=== PATIENT | female | born 1965 | race Caucasian/White ===

== ENCOUNTER 2022-10-26 09:44 | Inpatient (IN) ==
[2022-10-26] MEDS ORDERED: SODIUM CHLORIDE 0.9% 1000ML 1,000 ML IV ONE ×2 (10:01→14:20)
--- NOTE | 2022-10-26 10:22 | XRay Report ---
XR chest 1V portable CLINICAL HISTORY: dizziness TECHNIQUE: Single frontal radiograph of the chest was obtained. Comparison: None available at the time of this dictation. FINDINGS: No lines and tubes are seen. The cardiomediastinal silhouette is normal. The lungs are clear. No evid ence of pleural effusion or pneumothorax. IMPRESSION: No acute chest disease. ACT 112: Negative or not required by law. Electronically signed by: Mukund Harden M.D. 10/26/2022 10:21 AM
[2022-10-26] MEDS ORDERED: diphenhydrAMINE 50 MG/ML VIAL IV STA (10:41)
[2022-10-26] MEDS ORDERED: METOCLOPRAMIDE HCL INJ 5 MG/ML 2 ML VIAL IV ONE ×2 (10:41→22:00)
[2022-10-26] MEDS ORDERED: dexAMETHasone**PF** 10 MG/ML VIAL IV ONE (10:41)
[2022-10-26 10:53] LABS: Basophils # (auto) 0.03 K/uL (0-0.2); Basophils % (auto) 0.7 %; Eosinophils # (auto) 0.19 K/uL (0-0.50); Eosinophils % (auto) 4.5 %; Hematocrit (blood only) 38.4 % (37.0-47.0); Hemoglobin 13.1 g/dl (12.0-16.0); Immature Granulocytes # (auto) 0.01 K/uL (0.01-0.20); Immature Granulocytes % (auto) 0.2 %; Lymphocytes # (auto) 1.78 K/uL (1.2-3.4); Lymphocytes % (auto) 42.4 %; Mean Corpuscular Hemoglobin 28.1 pg (25.0-34.0); Mean Corpuscular Hgb Conc 34.1 g/dL (32.0-36.0); Mean Corpuscular Volume 82.4 fL (80.0-100.0); Monocytes # (auto) 0.56 K/uL (0.11-0.59); Monocytes % (auto) 13.3 %; Neutrophils # (auto) 1.63 K/uL (1.40-6.50); Neutrophils % (auto) 38.9 %; Platelet Count 291 K/uL (130-400); RDW Coefficient of Variation 13.6 % (11.5-14.5); RDW Standard Deviation 40.4 fL (36.4-46.3); Red Blood Count 4.66 M/uL (4.20-5.40)
--- NOTE | 2022-10-26 10:59 | Emergency Department Note ---
Impression & Plan Vertigo, Dizziness, NSVT (nonsustained ventricular tachycardia), HTN (hypertension) ED Provider Note NAME: ANNIE HINTON AGE: 57 SEX: F ARRIVES VIA: Ambulance INFORMANT: Patient ED PROVIDER(S): Keo Kessler MD CHIEF COMPLAINT: Vertigo PLAN: Disposition: Admit MEDICAL DECISION MAKING: The patient is a pleasant 57-year-old woman with a past medical history of chronic venous insufficiency, GERD, hypertension who presents to the emergency department via EMS for evaluation of dizziness and room spinning with associated nausea in the setting of reported feeling generalized malaise and fatigue over the past week. Patient denies any fevers, cough, congestion, vomiting or diarrhea. She has any urinary symptoms. 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 On arrival the patient is no acute distress, afebrile with blood pressure 170/110s, heart rate in the 90-100s and vital signs otherwise stable. She appears clinically dry. She has no focal neurologic deficits. EKG without overt acute ischemia. Chest x-ray negative for acute cardiopulmonary process. CT of the head and CTA head and neck negative for ICH or acute ischemia. 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 WBC 4.2k nonspecific. H/H and platelets within normal limits. Chemistry without metabolic acidosis. Electrolytes and LFTs without significant abnormality. High-sensitivity troponin 3.7, within normal limits. Lipase is normal. TSH 1.7, within normal limits. COVID-19 RNA, STACI test was negative. Of note, during the patient's most part observation she was noted to have an episode of tachycardia to the 150s which was self-limited lasting approximately 5-6 seconds which was wide complex. The patient denied having any symptoms during this period and does correlate to a moment when she reports she was movi ng around in the bed to make yourself more comfortable however given there is no baseline artifact telemetry finding is suspicious for NSVT versus paroxysmal atrial flutter. Patient did report feeling some improvement following IV fluid hydration, diphenhydramine, Reglan and dexamethasone for possible component of vestibular neuritis/labyrinthitis. Given her CT findings and telemetry she did agree with recommendation for admission for further evaluation. Case was discussed with Dr. Tate, [facility] hospitalist, who will evaluate the patient for admission. Triage Nursing notes reviewed and agree them. Prior/outside medical records reviewed Vital Signs: reviewed Differential diagnosis: Benign positional vertigo, dehydration, hypovolemia, anemia, tumor, infection, hypoglycemia, electrolyte abnormalities, cardiac sources, intracerebral event, toxicologic, neurologic, as well as other pathologies. ER treatment provided: See below. Diagnostics interpreted by me: ECG 955: Normal sinus rhythm, 84 bpm, no overt ST elevation or depression, QTc 451, QRS 74. Cardiac Monitoring: An order for continuous cardiac monitoring was placed and demonstrated Normal sinus rhythm, 84 bpm, NSVT vs paroxysmal atrial flutter Laboratory studies: See below Imaging studies: See below Consultation(s): Case was discussed with Dr. Tate, [facility] hospitalist, who will evaluate the patient for admission. HPI: The patient is a pleasant 57-year-old woman with a past medical history of chronic venous insufficiency, GERD, hypertension who presents to the emergency department via EMS for evaluation of dizziness and room spinning with associated nausea in the setting of reported feeling generalized malaise and fatigue over the past week. Patient denies any fevers, cough, congestion, vomiting or diarrhea. She has any urinary symptoms. 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 ROS: See above HPI for pertinent positives & negatives. A total of 10 systems reviewed and were otherwise negative. VITALS:See Below PHYSICAL EXAMINATION: GENERAL: Awake, alert, fatigued but well-appearing, in no distress HENT: Normocephalic, atraumatic. Oropharynx with dry mucous membranes and otherwise unremarkable. . EYES: Normal conjunctiva. Sclera non-icteric EOMI. No nystamgus. PEARRL. NECK: Supple. No nuchal rigidity. FROM. No JVD. RESPIRATORY: Clear to auscultation. CARDIAC: Tachycardic rate, normal rhythm. Extremities warm and well perfused. Pulses equal. ABDOMEN: Soft, non-distended. No tenderness to palpation. No rebound or guarding. No masses. RECTAL: Deferred. MUSCULOSKELETAL: Chest examination reveals no tenderness. The back is symmetrical on inspection without obvious abnormality. There is no CVA tenderness to palpation. No joint edema. LOWER EXTREMITIES: Calves are equal size bilaterally and non-tender. No edema. No discoloration. NEURO: Normal sensorium. No sensory or motor deficits noted. 5/5 strength and SILT x 4 extremities. Cerebellar function intact including [id number], alternating palms, [id number]. SKIN: No rash or jaundice noted. Keo Kessler MD Past Med/Surg History Medical History Facial paralysis/Crum Lynne palsy HTN (hypertension) Social History Smoking Status: Former smoker Smoking End Date: 2001; Hx Alcohol Use: Yes Hx Substance Use: No Preferred Language: Slovenian Communication Ability: Effective Family Nurse Practitioner Required: No Beliefs That Will Affect Care: None Current Living Situation: Family Current Living Situation Comment: daughter Feels Safe at Home: Yes Safety Concerns: Feels Safe At This Time Assistive Devices: Glasses Allergies Allergies Allergy/AdvReac Type Severity Reaction Status Date / Time cetirizine Allergy Unknown Verified 10/26/22 15:23 diflunisal [From Dolobid] Allergy Unknown Verified 10/26/22 15:23 hydrochlorothiazide Allergy Unknown Verified 10/26/22 15:23 Penicillins Allergy Unknown Verified 10/26/22 15:23 Home Meds Home Medications Medication Instructions Recorded Confirmed albuterol sulfate 90 mcg/actuation 2 puff inhalation Q4H PRN Wheezing 07/29/22 10/26/22 aerosol inhaler cholecalciferol (vitamin D3) 250 250 mcg PO DAILY 07/29/22 10/26/22 mcg (10,000 unit) capsule omeprazole 20 mg tablet,delayed 20 mg PO DAILY 07/29/22 10/26/22 release pseudoephedrine HCl 30 mg tablet 30 mg PO BID PRN nasal congestion 07/29/22 10/26/22 (Sudafed) carboxymethylcellulose sodium 0.5 1 drp ophthalmic (eye) .COMPLEX 08/02/22 10/26/22 % eye drops in a dropperette PRN Dry Eye(S) hydrochlorothiazide 25 mg tablet 50 mg PO DAILY 08/02/22 10/26/22 polyvinyl alcohol-povidone 1.4 1 drp ophthalmic (eye) QID PRN 08/02/22 10/26/22 %-0.6 % eye drops Other losartan 25 mg tablet 25 mg PO DAILY 09/02/22 10/26/22 vitamin B complex 1 tab PO DAILY 10/26/22 10/26/22 Results & Data (ED) Vital Signs Vital Signs - 24 hr 10/26/22 09:49 10/26/22 09:49 10/26/22 09:52 Temperature 36.5 C 36.5 C Temperature Source Oral Oral Pulse Rate 85 84 Pulse Rate [Apical] 84 Respiratory Rate 18 18 Respiratory Effort / Characteristics Non-Labored Non-Labored Respiratory Depth Normal Normal Respiratory Pattern Regular Regular Blood Pressure 153/85 H Blood Pressure [Right Arm] 153/85 H Blood Pressure Mean 107 Blood Pressure Mean [Right Arm] 107 Pulse Oximetry 100 99 Oxygen Delivery Method Room Air Room Air Sepsis New/Unexplained Change in Mental Status No Sepsis Action Taken by Nursing No Action Required 10/26/22 10:04 10/26/22 10:55 10/26/22 11:31 Temperature Temperature Source Pulse Rate 150 H Pulse Rate [Apical] 98 H Respiratory Rate 18 Respiratory Effort / Characteristics Non-Labored Respiratory Depth Normal Respiratory Pattern Regular Blood Pressure Blood Pressure [Right Arm] 170/113 H Blood Pressure Mean Blood Pressure Mean [Right Arm] 132 Pulse Oximetry 99 96 Oxygen Delivery Method Room Air Room Air Sepsis New/Unexplained Change in Mental Status Sepsis Action Taken by Nursing 10/26/22 13:05 10/26/22 14:35 Temperature Temperature Source Pulse Rate Pulse Rate [Apical] 108 H 113 H Respiratory Rate 18 18 Respiratory Effort / Characteristics Non-Labored Non-Labored Respiratory Depth Normal Normal Respiratory Pattern Regular Regular Blood Pressure Blood Pressure [Right Arm] 153/83 H 171/109 H Blood Pressure Mean Blood Pressure Mean [Right Arm] 106 129 Pulse Oximetry 96 96 Oxygen Delivery Method Room Air Room Air Sepsis New/Unexplained Change in Mental Status Sepsis Action Taken by Nursing Laboratory Data Attestation: I reviewed the patient's lab results. 10/26/22 09:56 10/26/22 09:56 Lab Results 10/26/22 10/26/22 10/26/22 Range/Units 09:56 09:56 09:56 WBC 4.20 L (4.8-10.8) K/ul RBC 4.66 (4.20-5.40) M/uL Hgb 13.1 (12.0-16.0) g/dl Hct 38.4 (37.0-47.0) % MCV 82.4 (80.0-100.0) fL MCH 28.1 (25.0-34.0) pg MCHC 34.1 (32.0-36.0) g/dL RDW Std Deviation 40.4 (36.4-46.3) fL RDW Coeff of Adolfo 13.6 (11.5-14.5) % Plt Count 291 (130-400) K/uL MPV 10.0 (9.4-12.4) fL Immature Gran % (Auto) 0.2 % Neut % (Auto) 38.9 % Lymph % (Auto) 42.4 % [place] % (Auto) 13.3 % Eos % (Auto) 4.5 % Baso % (Auto) 0.7 % Neut # (Auto) 1.63 (1.40-6.50) K/uL Lymph # (Auto) 1.78 (1.2-3.4) K/uL [place] # (Auto) 0.56 (0.11-0.59) K/uL Eos # (Auto) 0.19 (0-0.50) K/uL Baso # (Auto) 0.03 (0-0.2) K/uL Immature Gran # (Auto) 0.01 (0.01-0.20) K/uL Sodium 138 (136-145) mmol/L Potassium 3.8 (3.5-5.1) mmol/L Chloride 103 (98-107) mmol/L Carbon Dioxide 26 (21-32) mmol/L Anion Gap 9 (3-11) BUN 11 (6-23) mg/dl Creatinine 0.78 (0.6-1.2) mg/dl Est Cr Clr Drug Dosing Not Reportable Est GFR ( Amer) 98.5 ml/min Est GFR (Non-Af Amer) 85.0 ml/min BUN/Creatinine Ratio 14.1 (10-20) Glucose 115 H (70-99(Fasting)) mg/dl Calcium 10.1 (8.6-10.3) mg/dl Phosphorus 3.6 (2.5-4.9) mg/dl Magnesium 1.8 (1.7-2.4) mg/dl Total Bilirubin 0.6 (0.2-1.0) mg/dl AST 21 (13-39) U/L ALT 14 (7-52) U/L Alkaline Phosphatase 122 H (34-104) U/L Troponin I High Sens 3.7 (0-14) pg/ml Total Protein 7.1 (6.0-8.3) gm/dl Albumin 4.4 (3.4-5.0) gm/dl Globulin 2.7 (2.5-4.0) gm/dl Albumin/Globulin Ratio 1.6 (0.9-2) Lipase 19 (11-82) U/L TSH 1.731 (0.300-4.500) uIu/ml SARS-CoV-2, RNA, NAAT (NEGATIVE) 10/26/22 Range/Units 15:13 WBC (4.8-10.8) K/ul RBC (4.20-5.40) M/uL Hgb (12.0-16.0) g/dl Hct (37.0-47.0) % MCV (80.0-100.0) fL MCH (25.0-34.0) pg MCHC (32.0-36.0) g/dL RDW Std Deviation (36.4-46.3) fL RDW Coeff of Adolfo (11.5-14.5) % Plt Count (130-400) K/uL MPV (9.4-12.4) fL Immature Gran % (Auto) % Neut % (Auto) % Lymph % (Auto) % [place] % (Auto) % Eos % (Auto) % Baso % (Auto) % Neut # (Auto) (1.40-6.50) K/uL Lymph # (Auto) (1.2-3.4) K/uL [place] # (Auto) (0.11-0.59) K/uL Eos # (Auto) (0-0.50) K/uL Baso # (Auto) (0-0.2) K/uL Immature Gran # (Auto) (0.01-0.20) K/uL Sodium (136-145) mmol/L Potassium (3.5-5.1) mmol/L Chloride (98-107) mmol/L Carbon Dioxide (21-32) mmol/L Anion Gap (3-11) BUN (6-23) mg/dl Creatinine (0.6-1.2) mg/dl Est Cr Clr Drug Dosing Est GFR ( Amer) ml/min Est GFR (Non-Af Amer) ml/min BUN/Creatinine Ratio (10-20) Glucose (70-99(Fasting)) mg/dl Calcium (8.6-10.3) mg/dl Phosphorus (2.5-4.9) mg/dl Magnesium (1.7-2.4) mg/dl Total Bilirubin (0.2-1.0) mg/dl AST (13-39) U/L ALT (7-52) U/L Alkaline Phosphatase (34-104) U/L Troponin I High Sens (0-14) pg/ml Total Protein (6.0-8.3) gm/dl Albumin (3.4-5.0) gm/dl Globulin (2.5-4.0) gm/dl Albumin/Globulin Ratio (0.9-2) Lipase (11-82) U/L TSH (0.300-4.500) uIu/ml SARS-CoV-2, RNA, NAAT NEGATIVE (NEGATIVE) Administered Medications Aspirin (Aspirin 81 Mg Ectab) 81 mg PO DAILY FILOMENA Stop: 11/25/22 17:59 Last Admin: 10/26/22 18:04 Dose: 81 mg Documented By: TAYLOR Magnesium Oxide (Magnesium Oxide 400 Mg Tab) 400 mg PO QAM FILOMENA Stop: 11/25/22 17:59 Last Admin: 10/26/22 18:05 Dose: 400 mg Documented By: TAYLOR Discontinued Medications Dexamethasone Sodium Phosphate (DexamethasonePf 10 Mg/Ml Vial) 10 mg IV NOW ONE Stop: 10/26/22 10:42 Last Admin: 10/26/22 10:50 Dose: 10 mg Documented By: TARYN Diphenhydramine HCl (Diphenhydramine 50 Mg/Ml Vial) 25 mg IV NOW STA Stop: 10/26/22 10:42 Last Admin: 10/26/22 10:50 Dose: 25 mg Documented By: TARYN Sodium Chloride (Nss 1000ml) 1,000 mls @ 999 mls/hr IV .Q1H1M ONE Stop: 10/26/22 11:01 Last Infusion: 10/26/22 11:37 Dose: 0 mls/hr Documented By: Admin: 10/26/22 10:10 Dose: 999 mls/hr Documented By: TARYN Sodium Chloride (Nss 1000ml) 1,000 mls @ 999 mls/hr IV .Q1H1M ONE Stop: 10/26/22 15:20 Last Infusion: 10/26/22 16:30 Dose: 0 mls/hr Documented By: Admin: 10/26/22 14:36 Dose: 999 mls/hr Documented By: TARYN Ioversol (Optiray 320 500ml) 107 ml IV ONCE ONE Stop: 10/26/22 12:38 Last Admin: 10/26/22 12:37 Dose: 107 ml Documented By: KOSTAS Lorazepam (Lorazepam 0.5 Mg Tab) 0.5 mg PO NOW STA Stop: 10/26/22 18:17 Last Admin: 10/26/22 18:23 Dose: 0.5 mg Documented By: TAYLOR Metoclopramide HCl (Metoclopramide Hcl Inj 5 Mg/Ml 2 Ml Vial) 5 mg IV ONE ONE Stop: 10/26/22 10:42 Last Admin: 10/26/22 10:50 Dose: 5 mg Documented By: TARYN Imaging Data Radiologist's Impression: Chest X-Ray 10/26/22 10:01 XR chest 1V portable CLINICAL HISTORY: dizziness TECHNIQUE: Single frontal radiograph of the chest was obtained. Comparison: None available at the time of this dictation. FINDINGS: No lines and tubes are seen. The cardiomediastinal silhouette is normal. The oliver ngs are clear. No evidence of pleural effusion or pneumothorax. IMPRESSION: No acute chest disease. ACT 112: Negative or not required by law. Electronically signed by: Mukund Harden M.D. 10/26/2022 10:[address] 10/26/22 10:41 CT angio head w con, CT angio neck with con, CT head/brain wo con CLINICAL HISTORY: vertigo TECHNIQUE: Contiguous axial CT images of the head were acquired from the base of the skull to the vertex without intravenous contrast administration. CT angiography of the head and neck was performed following intravenous adminis tration of iodinated contrast. Coronal and sagittal MIPS were obtained from the axial data set and were submitted for review. Automated dose lowering techniques and/or adjustment according to patient size were utilized for this examination. All measurements were calculated based on NASCET criteria. CT DOSE: 1172.22 mGy.cm Comparison: None available at the time of this dictation. FINDINGS: CT head: There is no acute intracranial hemorrhage or evidence of acute territorial infarction. No shift of the midline structures, mass effect, or extra-axial abnormalities are shown. Arachnoid cyst is seen in the left frontal lobe, unchanged from prior exam. Lungs and soft tissues are unremarkable. CTA Neck: A 3 vessel aortic arch is shown. There is no significant atherosclerotic plaque in the aortic arch or the origins of the innominate, left common carotid, and left subclavian arteries. 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 The right vertebral artery is dominant. CTA Head: The anterior and posterior cerebral circulations are patent. No hemodynamically significant stenosis, aneurysm, dissection, or arteriovenous malformation is shown. IMPRESSION: 1. No acute intracranial hemorrhage, evidence of acute territorial infarction, or other acute intracranial disease process. Redemonstration of left frontal arachnoid cyst. 2. 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 This may be a chronic finding. 3. No occlusion, hemodynamically significant stenosis, aneurysm, dissection, or arteriovenous malformation in the major intracranial arteries. Assessment of stenosis of the internal carotid arteries is based on NASCET criteria. ACT 112: Negative or not required by law. Electronically signed by: Mukund Harden M.D. 10/26/2022 12:57 PM Head CTA 10/26/22 10:41 CT angio head w con, CT angio neck with con, CT head/brain wo con CLINICAL HISTORY: vertigo TECHNIQUE: Contiguous axial CT images of the head were acquired from the base of the skull to the vertex without intravenous contrast administration. CT angiography of the head and neck was performed following intravenous administration of iodinated contrast. Coronal and sagittal MIPS were obtained from the axial data set and were submitted for review. Automated dose lowering techniques and/or adjustment according to patient size were utilized for this examination. All measurements were calculated based on NASCET criteria. CT DOSE: 1172.22 mGy.cm Comparison: None available at the time of this dictation. FINDINGS: CT head: There is no acute intracranial hemorrhage or evidence of acute territorial infarction. No shift of the midline structures, mass effect, or extra-axial abnormalities are shown. Arachnoid cyst is seen in the left frontal lobe, unchanged from prior exam. Lungs and soft tissues are unremarkable. CTA Neck: A 3 vessel aortic arch is shown. There is no significant atherosclerotic plaque in the aortic arch or the origins of the innominate, left common carotid, and left subclavian arteries. 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 The right vertebral artery is dominant. CTA Head: The anterior and posterior cerebral circulations are patent. No hemodynamically significant stenosis, aneurysm, dissection, or arteriovenous malformation is shown. IMPRESSION: 1. No acute intracranial hemorrhage, evidence of acute territorial infarction, or other acute intracranial disease process. Redemonstration of left frontal arachnoid cyst. 2. 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 This may be a chronic finding. 3. No occlusion, hemodynamically significant stenosis, aneurysm, dissection, or arteriovenous malformation in the major intracranial arteries. Assessment of stenosis of the internal carotid arteries is based on NASCET criteria. ACT 112: Negative or not required by law. Electronically signed by: Mukund Harden M.D. 10/26/2022 12:57 PM Neck CTA 10/26/22 10:41 CT angio head w con, CT angio neck with con, CT head/brain wo con CLINICAL HISTORY: vertigo TECHNIQUE: Contiguous axial CT images of the head were acquired from the base of the skull to the vertex without intravenous contrast administration. CT angiography of the head and neck was performed following intravenous administration of iodinated contrast. Coronal and sagittal MIPS were obtained from the axial data set and were submitted for review. Automated dose lowering techniques and/or adjustment according to patient size were utilized for this examination. All measurements were calculated based on NASCET criteria. CT DOSE: 1172.22 mGy.cm Comparison: None available at the time of this dictation. FINDINGS: CT head: There is no acute intracranial hemorrhage or evidence of acute territorial infarction. No shift of the midline structures, mass effect, or extra-axial abnormalities are shown. Arachnoid cyst is seen in the left frontal lobe, unchanged from prior exam. Lungs and soft tissues are unremarkable. CTA Neck: A 3 vessel aortic arch is shown. There is no significant atherosclerotic plaque in the aortic arch or the origins of the innominate, left common carotid, and left subclavian arteries. 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 The right vertebral artery is dominant. CTA Head: The anterior and posterior cerebral circulations are patent. No hemodynamically significant stenosis, aneurysm, dissection, or arteriovenous malformation is shown. IMPRESSION: 1. No acute intracranial hemorrhage, evidence of acute territorial infarction, or other acute intracranial disease process. Redemonstration of left frontal ar achnoid cyst. 2. There is near occlusion of the left vertebral artery with distal recon stitution. This may be a chronic finding. 3. No occlusion, hemodynamically significant stenosis, aneurysm, dissection, or arteriovenous malformation in the major intracranial arteries. Assessment of stenosis of the internal carotid arteries is based on NASCET jossie quintana. ACT 112: Negative or not required by law. Electronically signed by: Mukund Harden M.D. 10/26/2022 12:57 PM Discharge Plan Visit Data Chief Complaint: Illness ED Provider: Keo Kessler Discharge Problem: Vertigo, Dizziness, NSVT (nonsustained ventricular tachycardia), HTN (hyper tension) Patient Disposition: Admitted As Inpatient Discharge Instructions Interventions: ED Discharge Assessment Last Done: 10/26/22 16:57
[2022-10-26 11:07] LABS: Alanine Aminotransferase 14 U/L (7-52); Albumin Globulin Ratio 1.6 (0.9-2); Albumin Level 4.4 gm/dl (3.4-5.0); Alkaline Phosphatase 122 U/L (34-104); Anion Gap 9 (3-11); Aspartate Aminotransferase 21 U/L (13-39); BUN Creatinine Ratio 14.1 (10-20); Bilirubin,Total 0.6 mg/dl (0.2-1.0); Blood Urea Nitrogen 11 mg/dl (6-23); Calcium 10.1 mg/dl (8.6-10.3); Carbon Dioxide 26 mmol/L (21-32); Chloride 103 mmol/L (98-107); Est GFR (African American) 98.5 ml/min; Globulin 2.7 gm/dl (2.5-4.0); Glucose 115 mg/dl (70-99(Fasting)); Lipase 19 U/L (11-82); Magnesium 1.8 mg/dl (1.7-2.4); Phosphorus 3.6 mg/dl (2.5-4.9); Potassium 3.8 mmol/L (3.5-5.1); Sodium 138 mmol/L (136-145); Total Protein 7.1 gm/dl (6.0-8.3)
[2022-10-26 11:12] LABS: Troponin I High Sensitivity 3.7 pg/ml (0-14)
--- NOTE | 2022-10-26 12:10 | Electrocardiogram Report ---
Test Reason : Blood Pressure : / mmHG Vent. Rate : 084 BPM Atrial Rate : 084 BPM P-R Int : 162 ms QRS Dur : 074 ms QT Int : 382 ms P-R-T Axes : 061 035 043 degrees QTc Int : 451 ms Normal sinus rhythm No previous ECGs available Confirmed by Artemio Miramontes ([id number]) on 10/26/2022 12:10:28 PM Referred By: REFERRED SELF Confirmed By:Lisandro Miramontes
[2022-10-26] MEDS ORDERED: OPTIRAY 320 500ml IV ONE (12:37)
--- NOTE | 2022-10-26 12:58 | CT Scan Report ---
CT angio head w con, CT angio neck with con, CT head/brain wo con CLINICAL HISTORY: vertigo TECHNIQUE: Contiguous axial CT images of the head were acquired from the base of the skull to the mehrdad monique without intravenous contrast administration. CT angiography of the head and neck was performed f ollowing intravenous administration of iodinated contrast. Coronal and sagittal MIPS were obtained fr om the axial data set and were submitted for review. Automated dose lowering techniques and/or adjus tment according to patient size were utilized for this examination. All measurements were calculated based on NASCET criteria. CT DOSE: 1172.22 mGy.cm Comparison: None available at the time of this dictation. FINDINGS: CT head: There is no acute intracranial hemorrhage or evidence of acute territorial infarction. No sh ift of the midline structures, mass effect, or extra-axial abnormalities are shown. Arachnoid cyst is seen in the left frontal lobe, unchanged from prior exam. Lungs and soft tissues are unremarkable. CTA Neck: A 3 vessel aortic arch is shown. There is no significant atherosclerotic plaque in the aor tic arch or the origins of the innominate, left common carotid, and left subclavian arteries. 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 The right vertebral art renetta is dominant. CTA Head: The anterior and posterior cerebral circulations are patent. No hemodynamically significan t stenosis, aneurysm, dissection, or arteriovenous malformation is shown. IMPRESSION: 1. No acute intracranial hemorrhage, evidence of acute territorial infarction, or other acute intrac ranial disease process. Redemonstration of left frontal arachnoid cyst. 2. 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 This may be a ch ronic finding. 3. No occlusion, hemodynamically significant stenosis, aneurysm, dissection, or arteriovenous malfor mation in the major intracranial arteries. Assessment of stenosis of the internal carotid arteries is based on NASCET criteria. ACT 112: Negative or not required by law. Electronically signed by: Mukund Harden M.D. 10/26/2022 12:57 PM
--- NOTE | 2022-10-26 14:39 | History & Physical Report ---
Date of Service October 26, 2022 Assessment & Plan (1) Dizziness: Plan: Dizziness. Suspect labyrinthitis, DDx includes posterior circulation defect Symptoms: acutely this morning, has additional had malaise in the last week. Has had some right-sided ear pain as well. -Did have 1 episode of NSVT (see HPI) asymptomatic while in bed No leukocytosis Hemoglobin normal No electrolyte derangement Renal function normal at baseline, admitting creatinine 0.78 High-sensitivity troponin is normal EKG is normal sinus rhythm without territorial ST segment/T wave changes. 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 Right vertebral artery is dominant. Left vertebral occlusion possibly chronic no acute findings of the major intracranial arteries CXR: No active disease Given vertebral artery occlusion but with distal reconstitution will obtain MRI to look for any evidence of diffusion abnormality on DWI. Aspirin 81 mg started. She has not had any diplopia/drop attacks/perioral numbness/dysarthria/ataxia. This is her first episode. Symptoms are not present at time of bedside evaluation NSVT See HPI for rhythm strip Patient with no history of MA, ischemic disease, or arrhythmia. This run of NSVT did not correlate with symptoms at the time, patient was in bed We will follow overnight, keep on telemetry, and obtain echo Discussed with cardiology, defer metoprolol at this time, will follow echo. If no additional runs likely candidate for outpatient mobile telemetry monitoring. Cardiology consulted Hypertension Well-controlled on losartan, continued DVT prophylaxis: Lovenox Disposition: PCU for arrhythmia monitoring with 1 episode of? NSVT CODE STATUS: Full code Diet heart healthy (2) NSVT (nonsustained ventricular tachycardia): (3) HTN (hypertension): History of Present Illness Primary Care Provider: Brenda Juan Carlos Negron is a 57-year-old female with a past medical history of chronic venous insufficiency, GERD, hypertension, and Blanca's palsy 1 month prior to ER presentation who presents with dizziness, room spinning and nausea. She has had additional fatigue and malaise for the last week. Had Blanca's palsy 1 month ago with weakness of the forehead, eyelid, and lower face. Symptoms from this resolved completely. Did have a slight facial droop at that time Yesterday she reports she had one episode of dizziness which passed after a few seconds after she sat down. Today she felt fine in th emorning, got up and was doing OK. Was walking around her bed and felt the same type of dizzy spell. [place] like the room was rocking and she tilted onto her bed. [place] like the whole room was moving/spinning. [place] very nauseated during the episode. Did not throw up Has never had these symptoms before. - No vision change, no loss of conciousness, no perioral numbness, no ear tinning, no difficulty speaking. has not had problems walking since. Denies ataxia 'i was in control and could move normally, just room was spinning and felt dizzy.' No syncope/presyncope. No tinnitus No chest pain, chest pressure. No palpitations. Does get allergies, has not been congested recently hx RAÚL edema, was going to see Dr. Ruby for venoseal tomorrow No heart problems in the past. No fhx of heart disease in first degree relatives. Grandparents with some heart disease in old age but she isn't sure. Mother had thyroid problems Pt has hx of high blood pressure well controlled on losartan No fevers, chills [place] palsy went away completely, was on L side Has had an earache for 1-2 days little pressure in the ear. Uses ibuprofen for pain as needed/toothache. Does not regularly use aspirin. Medical History: Reviewed Medications: Reviewed Surgical History: Reviewed Family history: Reviewed Allergies: Reviewed Social History: No hx tobacco product use. Code Status: Full Code Allergies Allergy/AdvReac Type Severity Reaction Status Date / Time cetirizine Allergy Verified 09/02/22 11:22 diflunisal [From Dolobid] Allergy Verified 09/02/22 11:22 hydrochlorothiazide Allergy Verified 09/02/22 11:30 Penicillins Allergy Verified 09/02/22 11:22 Home Medications Medication Instructions Recorded Confirmed Type albuterol sulfate 90 mcg/actuation 2 puff inhalation Q4H PRN Wheezing 07/29/22 09/02/22 History aerosol inhaler cholecalciferol (vitamin D3) 250 250 mcg PO DAILY 07/29/22 09/02/22 History mcg (10,000 unit) capsule omeprazole 20 mg tablet,delayed 20 mg PO DAILY 07/29/22 09/02/22 History release pseudoephedrine HCl 30 mg tablet 30 mg PO BID PRN nasal congestion 07/29/22 09/02/22 History (Sudafed) carboxymethylcellulose sodium 0.5 1 drp ophthalmic (eye) .COMPLEX 08/02/22 09/02/22 History % eye drops in a dropperette PRN Dry Eye(S) hydrochlorothiazide 25 mg tablet 50 mg PO DAILY 08/02/22 09/02/22 History polyvinyl alcohol-povidone 1.4 1 drp ophthalmic (eye) QID PRN 08/02/22 09/02/22 History %-0.6 % eye drops Other erythromycin 5 mg/gram (0.5 %) eye 1 applic ophthalmic (eye) BID #3.5 09/02/22 Rx ointment grams losartan 25 mg tablet 25 mg PO DAILY 09/02/22 09/02/22 History Past Med/Surg History Medical History (Updated 10/26/22 @ 15:12 by Jakob Tate MD) HTN (hypertension) Social History Smoking Status: Never smoker Preferred Language: Filipino Feels Safe at Home: Yes Review of Systems Review of Systems: All systems reviewed & are unremarkable except as noted in HPI & below Physical Exam Physical Exam: General: A&Ox3. NAD. Cooperative. HEENT: Atraumatic, normocephalic. Vision/hearing intact. No facial asymmetry, see neuro below Pulm: CTAB A&P. -wheezes, -rales, -rhonchi. Symmetrical chest rise. No increased work of breathing. No respiratory distress. Cardiac: regular, tachycardic, -mrg. Radial pulses intact and symmetrical. Abdominal: Nontender, nondistended, soft. BS present. CRANIAL NERVES: II: Pupils equal and reactive, no relative afferent pupillary defect, no VF cuts III, IV, : EOM intact, no gaze preference or deviation, no nystagmus. V: normal sensation in V1, V2, and V3 segments bilaterally VII: no asymmetry, no nasolabial fold flattening VIII: normal hearing to speech IX, X: normal palatal elevation, no uvular deviation XI: 5/5 head turn and 5/5 shoulder shrug bilaterally XII: midline tongue protrusion MOTOR: RUE: 5/5 Shoulder internal rotation, external rotation, flexion, extension, abduction, adduction 5/5 Elbow flexion/extension, wrist flexion/extension 5/5 rn circulating strength, finger flexion/extension, interosseus LUE: 5/5 Shoulder internal rotation, external rotation, flexion, extension, abduction, adduction 5/5 Elbow flexion/extension, wrist flexion/extension 5/5 rn circulating strength, finger flexion/extension, interosseus RLE: 5/5 to hip flexion, knee flexion/extension, ankle dorsiflexion/plantarflexion LLE: 5/5 to hip flexion, knee flexion/extension, ankle dorsiflexion/plantarflexion REFLEXES: 2/4 patellar, bicepts, and achilles DTR without asymmetry. Bilateral flexor planter response, no William's, no clonus SENSORY: Normal to touch in upper and lower extremities without deficit or asymmetry COORD: Normal finger to nose and heel to meza Results & Data Results & Data Vital Signs (Past 12 Hours) Vital Signs Temp Pulse Pulse Resp BP BP Pulse Ox 10/26/22 14:35 113 H 18 171/109 H 96 10/26/22 13:05 108 H 18 153/83 H 96 10/26/22 11:31 150 H 10/26/22 10:55 98 H 18 170/113 H 96 10/26/22 10:04 99 10/26/22 09:52 84 10/26/22 09:49 36.5 C 84 18 153/85 H 99 10/26/22 09:49 36.5 C 85 18 153/85 H 100 O2 Del Method 10/26/22 14:35 Room Air 10/26/22 13:05 Room Air 10/26/22 11:31 10/26/22 10:55 Room Air 10/26/22 10:04 Room Air 10/26/22 09:52 10/26/22 09:49 Room Air 10/26/22 09:49 Room Air PG Care Time/CCT Total # of Minutes Spent Total Time Spent with Patient: Total time spent is greater than 50% in coordination of care (as documented) at patient's floor/unit and/or counseling patient: Coding Level of Care Code 88393 INT INP/OBS CARE 255MIN Diagnoses Dizziness R42 NSVT (nonsustained ventricular tachycardia) I47.29 HTN (hypertension) I10
[2022-10-26] MEDS: ASPIRIN 81 MG ECTAB PO SCH (18:04)
[2022-10-26] MEDS: MAGNESIUM OXIDE 400 MG TAB PO SCH (18:05)
[2022-10-26] MEDS ORDERED: LORazepam 0.5 MG TAB PO STA (18:16)
--- NOTE | 2022-10-26 19:08 | Magnetic Resonance Report ---
MR brain wo con CLINICAL HISTORY: eval posterior circ cva/diffusion defect TECHNIQUE: Multiplanar and multisequence MR images of the brain were obtained without intravenous con trast. Comparison: Comparison is made to CT head 10/26/2022 and MRI brain 09/02/2022 FINDINGS: No abnormal restricted diffusion is identified. A few punctate foci of DWI hyperintensity in the post erior fossa are without ADC correlate well with associated T2 hyperintensity.. Punctate white matter hyperintensity is noted in the left parietal lobe. The ventricular system is normal in appearance. Le ft arachnoid cyst is seen. There is no mass effect or midline shift. There is no evidence of acute in traparenchymal hemorrhage. No extra axial fluid collections are seen. The corpus callosum, pituitary gland, and cerebellar tonsils appear grossly unremarkable. Flow voids of the major intracranial arterial vessels are identified. The imaged portions of the para nasal sinuses, mastoid air cells, and orbits are unremarkable. IMPRESSION: There are a few punctate foci of DWI hyperintensity in the posterior fossa bilaterally. These may mehrdad y questionably reflect punctate infarcts. Left arachnoid cyst is seen. ACT 112: Negative or not required by law. Electronically signed by: Mukund Harden M.D. 10/26/2022 7:06 PM
[2022-10-27 06:33] LABS: Basophils # (auto) 0.01 K/uL (0-0.2); Basophils % (auto) 0.1 %; Hematocrit (blood only) 35.9 % (37.0-47.0); Hemoglobin 12.5 g/dl (12.0-16.0); Immature Granulocytes # (auto) 0.03 K/uL (0.01-0.20); Immature Granulocytes % (auto) 0.4 %; Lymphocytes # (auto) 1.58 K/uL (1.2-3.4); Lymphocytes % (auto) 21.1 %; Mean Corpuscular Hemoglobin 27.9 pg (25.0-34.0); Mean Corpuscular Hgb Conc 34.8 g/dL (32.0-36.0); Mean Corpuscular Volume 80.1 fL (80.0-100.0); Mean Platelet Volume 9.8 fL (9.4-12.4); Monocytes # (auto) 0.75 K/uL (0.11-0.59); Neutrophils # (auto) 5.13 K/uL (1.40-6.50); Neutrophils % (auto) 68.4 %; Platelet Count 333 K/uL (130-400); RDW Coefficient of Variation 13.5 % (11.5-14.5); RDW Standard Deviation 39.7 fL (36.4-46.3); Red Blood Count 4.48 M/uL (4.20-5.40)
[2022-10-27 06:53] LABS: BUN Creatinine Ratio 22.4 (10-20); Calcium 9.4 mg/dl (8.6-10.3); Creatinine Clr Calc Pharmacy 139.8 ml/min; Est GFR (African American) 119.4 ml/min; Magnesium 1.8 mg/dl (1.7-2.4); Potassium 3.7 mmol/L (3.5-5.1)
[2022-10-27] MEDS: ONDANSETRON INJ 2 MG/ML 2 ML VIAL IV PRN ×2 (08:04→12:00)
[2022-10-27] MEDS: PROMETHAZINE HCL 6.25 MG in SODIUM CHLORIDE 0.9% 50 ML IV PRN ×2 (09:03→21:23)
--- NOTE | 2022-10-27 09:12 | Neurology Consultation ---
Date of Consultation October 27, 2022 Assessment & Plan (1) Stroke with cerebral ischemia: Small punctate strokes noted in the bilateral cerebellar hemispheres in the setting of a L vert occlusion not present on the MR c-spine from 09/04. Suspect plaque rupture as the cause for the occlusion given the calciified deposit at the origin of the occlusion. Does not appear to be a dissection and patient has no risk factors for dissection. Vertigo is out of proportion to the tiny infarcts seen on MRI suggesting perhaps labrynthine artery involvement. Would continue aggressive symptomatic relief, add valium and meclizine in addition to the antiemetics. For stroke prevention, please add plavix 75mg daily to aspirin 81mg daily for 21 days, then aspirin alone. Start Lipitor 40mg daily. Continue therapy evals, would otherwise expect full recovery, prognosis is good. -- Valium PRN and meclizine scheduled for vertigo -- Continue antiemetics -- Aspirin 81mg daily and plavix 75mg daily for 21 days, then aspirin monotherapy -- Lipitor 40mg daily -- Repeat CTA neck in 3 months -- Continue therapy evals -- Does not need zio patch at discharge -- Neurology follow-up in 6-8 weeks -- Please contact us with any further questions Telehealth Consultation Telehealth Information Telehealth Information: I performed this visit using a real-time telehealth connection between my location and the patients location ([facility]). After connecting through interactive tele-video, patient was identified by name and date of and/or wristband check.Patient (or authorized healthcare field representative) was informed that this was a telemedicine visit and it was being conducted confidentially over secure lines. My office door was closed and no one else was present in the room with me.Patient (or authorized healthcare field representative) provided consent to proceed with the visit, expressed an understanding of privacy and security of the telemedicine visit, and gave permission to have a hospital field representative in the room in order to assist with the visit and to conduct portions of the visit, as needed. I informed the patient (or authorized healthcare field representative) that I reviewed their record and presented the opportunity for them to ask any questions regarding the visit today. The patient agreed to participate. History of Present Illness Reason for Consultation: Vertigo Requesting Physician: Dr. Haney Attending Physician: Linda Haney MD History of Present Illness Migdalia Teixeira is a 57 yo F presenting with acute onset vertigo that began Tuesday, resolved, then recurred again yesterday. She has never had vertigo like this in the past and has had intractable nausea and vomiting that is worse with movement since yesterday. 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 She reports that she was unable to close her left eye and had left facial weakness that entirely resolved within 2 weeks. Otherwise no history of stroke in the past, no injury to the neck, no chiropracty. Otherwise denies any weakness, numbness, vision or speech changes. Allergies Allergy/AdvReac Type Severity Reaction Status Date / Time cetirizine Allergy Unknown Verified 10/26/22 15: diflunisal [From Dolobid] Allergy Unknown Verified 10/26/22 15: hydrochlorothiazide Allergy Unknown Verified 10/26/22 15: Penicillins Allergy Unknown Verified 10/26/22 15:23 Home Medications Medication Instructions Recorded Confirmed Type albuterol sulfate 90 mcg/actuation 2 puff inhalation Q4H PRN Wheezing 07/29/22 10/26/22 History aerosol inhaler cholecalciferol (vitamin D3) 250 250 mcg PO DAILY 07/29/22 10/26/22 History mcg (10,000 unit) capsule omeprazole 20 mg tablet,delayed 20 mg PO DAILY 07/29/22 10/26/22 History release pseudoephedrine HCl 30 mg tablet 30 mg PO BID PRN nasal congestion 07/29/22 10/26/22 History (Sudafed) carboxymethylcellulose sodium 0.5 1 drp ophthalmic (eye) .COMPLEX 08/02/22 10/26/22 History % eye drops in a dropperette PRN Dry Eye(S) hydrochlorothiazide 25 mg tablet 50 mg PO DAILY 08/02/22 10/26/22 History polyvinyl alcohol-povidone 1.4 1 drp ophthalmic (eye) QID PRN 08/02/22 10/26/22 History %-0.6 % eye drops Other losartan 25 mg tablet 25 mg PO DAILY 09/02/22 10/26/22 History vitamin B complex 1 tab PO DAILY 10/26/22 10/26/22 History Patient History Medical History Facial paralysis/Crandon palsy HTN (hypertension) Social History Smoking Status: Former smoker Smoking End Date: 2001; Hx Alcohol Use: Yes Hx Substance Use: No Preferred Language: French Communication Ability: Effective Crtt Required: No Beliefs That Will Affect Care: None Current Living Situation: Family Current Living Situation Comment: daughter Feels Safe at Home: Yes Safety Concerns: Feels Safe At This Time Assistive Devices: Glasses Review of Systems +vertigo Physical Exam Neurological Examination: Mental Status: Awake and alert. Oriented to person, place, and time. Fluent. Comprehension intact. Affect appropriate. Cranial Nerves: II: pupils 3/3 to 2/2, blount grossly intact. III/IV/: Versions intact with R beating nystagmus on primary gaze V: Facial sensation symmetric to light touch VII: Facial expression symmetric VIII: Hearing intact to voice IX/X: Palate elevates symmetrically XI: Shoulder shrug symmetric XII: Tongue midline Motor: Strength was symmetric and antigravity throughout. Pronator drift was absent. There were no abnormal movements. Coordination: Finger to nose was intact Reflexes: Unable to assess over telemedicine Results & Data Vital Signs (Past 12 Hours) Vital Signs Temp Pulse Pulse Resp BP Pulse Ox O2 Del Method 10/27/22 07:00 96 H 10/27/22 08:28 Room Air 10/27/22 08:40 79 18 159/92 H 97 Room Air 10/27/22 08:11 85 18 147/91 H 97 Room Air 10/27/22 07:57 37 C 109 H 26 H 166/99 H 99 Room Air 10/27/22 07:43 101 H 18 149/95 H 99 Room Air 10/27/22 02:59 36.8 C 95 H 16 139/87 97 Room Air 10/26/22 22:02 99 H 10/26/22 23:00 36.7 C 92 H 18 123/59 L 96 Room Air Laboratory Results Abnormal lab results 10/26/22 10/26/22 10/27/22 Range/Units 09:56 09:56 05:49 WBC 4.20 L (4.8-10.8) K/ul Hct 35.9 L (37.0-47.0) % Brooke # (Auto) 0.75 H (0.11-0.59) K/uL Creatinine (0.6-1.2) mg/dl BUN/Creatinine Ratio (10-20) Glucose 115 H (70-99(Fasting)) mg/dl Alkaline Phosphatase 122 H (34-104) U/L 10/27/22 Range/Units 05:49 WBC (4.8-10.8) K/ul Hct (37.0-47.0) % Brooke # (Auto) (0.11-0.59) K/uL Creatinine 0.58 L (0.6-1.2) mg/dl BUN/Creatinine Ratio 22.4 H (10-20) Glucose 121 H (70-99(Fasting)) mg/dl Alkaline Phosphatase (34-104) U/L Diagnostic Findings Chest X-Ray 10/26/22 10:01 XR chest 1V portable CLINICAL HISTORY: dizziness TECHNIQUE: Single frontal radiograph of the chest was obtained. Comparison: None available at the time of this dictation. FINDINGS: No lines and tubes are seen. The cardiomediastinal silhouette is normal. The lungs are clear. No evidence of pleural effusion or pneumothorax. IMPRESSION: No acute chest disease. ACT 112: Negative or not required by law. Electronically signed by: Mukund Harden M.D. 10/26/2022 10:[address] 10/26/22 10:41 CT angio head w con, CT angio neck with con, CT head/brain wo con CLINICAL HISTORY: vertigo TECHNIQUE: Contiguous axial CT images of the head were acquired from the base of the skull to the vertex without intravenous contrast administration. CT an giography of the head and neck was performed following intravenous administration of iodinated contrast. Coronal and sagittal MIPS were obtained from the axial data set and were submitted for review. Automated dose lowering techniques and/or adjustment according to patient size were utilized for this examination. All measurements were calculated based on NASCET criteria. CT DOSE: 1172.22 mGy.cm Comparison: None available at the time of this dictation. FINDINGS: CT head: There is no acute intracranial hemorrhage or evidence of acute territorial infarction. No shift of the midline structures, mass effect, or extra-axial abnormalities are shown. Arachnoid cyst is seen in the left frontal lobe, unchanged from prior exam. Lungs and soft tissues are unremarkable. CTA Neck: A 3 vessel aortic arch is shown. There is no significant atherosclerotic plaque in the aortic arch or the origins of the innominate, left common carotid, and left subclavian arteries. 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 The right vertebral artery is dominant. CTA Head: The anterior and posterior cerebral circulations are patent. No hemodynamically significant stenosis, aneurysm, dissection, or arteriovenous malformation is shown. IMPRESSION: 1. No acute intracranial hemorrhage, evidence of acute territorial infarction, or other acute intracranial disease process. Redemonstration of left frontal arachnoid cyst. 2. 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 This may be a chronic finding. 3. No occlusion, hemodynamically significant stenosis, aneurysm, dissection, or arteriovenous malformation in the major intracranial arteries. Assessment of stenosis of the internal carotid arteries is based on NASCET criteria. ACT 112: Negative or not required by law. Electronically signed by: Mukund Harden M.D. 10/26/2022 12:57 PM Head CTA 10/26/22 10:41 CT angio head w con, CT angio neck with con, CT head/brain wo con CLINICAL HISTORY: vertigo TECHNIQUE: Contiguous axial CT images of the head were acquired from the base of the skull to the vertex without intravenous contrast administration. CT angiography of the head and neck was performed following intravenous administration of iodinated contrast. Coronal and sagittal MIPS were obtained from the axial data set and were submitted for review. Automated dose lowering techniques and/or adjustment according to patient size were utilized for this examination. All measurements were calculated based on NASCET criteria. CT DOSE: 1172.22 mGy.cm Comparison: None available at the time of this dictation. FINDINGS: CT head: There is no acute intracranial hemorrhage or evidence of acute territorial infarction. No shift of the midline structures, mass effect, or extra-axial abnormalities are shown. Arachnoid cyst is seen in the left frontal lobe, unchanged from prior exam. Lungs and soft tissues are unremarkable. CTA Neck: A 3 vessel aortic arch is shown. There is no significant atherosclerotic plaque in the aortic arch or the origins of the innominate, left common carotid, and left subclavian arteries. 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 The right vertebral artery is dominant. CTA Head: The anterior and posterior cerebral circulations are patent. No hemodynamically significant stenosis, aneurysm, dissection, or arteriovenous malformation is shown. IMPRESSION: 1. No acute intracranial hemorrhage, evidence of acute territorial infarction, or other acute intracranial disease process. Redemonstration of left frontal arachnoid cyst. 2. 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 This may be a chronic finding. 3. No occlusion, hemodynamically significant stenosis, aneurysm, dissection, or arteriovenous malformation in the major intracranial arteries. Assessment of stenosis of the internal carotid arteries is based on NASCET criteria. ACT 112: Negative or not required by law. Electronically signed by: Mukund Harden M.D. 10/26/2022 12:57 PM Neck CTA 10/26/22 10:41 CT angio head w con, CT angio neck with con, CT head/brain wo con CLINICAL HISTORY: vertigo TECHNIQUE: Contiguous axial CT images of the head were acquired from the base of the skull to the vertex without intravenous contrast administration. CT angiography of the head and neck was performed following intravenous administration of iodinated contrast. Coronal and sagittal MIPS were obtained from the axial data set and were submitted for review. Automated dose lowering techniques and/or adjustment according to patient size were utilized for this examination. All measurements were calculated based on NASCET criteria. CT DOSE: 1172.22 mGy.cm Comparison: None available at the time of this dictation. FINDINGS: CT head: There is no acute intracranial hemorrhage or evidence of acute territorial infarction. No shift of the midline structures, mass effect, or extra-axial abnormalities are shown. Arachnoid cyst is seen in the left frontal lobe, unchanged from prior exam. Lungs and soft tissues are unremarkable. CTA Neck: A 3 vessel aortic arch is shown. There is no significant atherosclerotic plaque in the aortic arch or the origins of the innominate, left common carotid, and left subclavian arteries. 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 The right vertebral artery is dominant. CTA Head: The anterior and posterior cerebral circulations are patent. No hemodynamically significant stenosis, aneurysm, dissection, or arteriovenous malformation is shown. IMPRESSION: 1. No acute intracranial hemorrhage, evidence of acute territorial infarction, or other acute intracranial disease process. Redemonstration of left frontal arachnoid cyst. 2. 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 This may be a chronic finding. 3. No occlusion, hemodynamically significant stenosis, aneurysm, dissection, or arteriovenous malformation in the major intracranial arteries. Assessment of stenosis of the internal carotid arteries is based on NASCET criteria. ACT 112: Negative or not required by law. Electronically signed by: Mukund Harden M.D. 10/26/2022 12:57 PM Brain MRI 10/26/22 17:24 MR brain wo con CLINICAL HISTORY: eval posterior circ cva/diffusion defect TECHNIQUE: Multiplanar and multisequence MR images of the brain were obtained without intravenous contrast. Comparison: Comparison is made to CT head 10/26/2022 and MRI brain 09/02/2022 FINDINGS: No abnormal restricted diffusion is identified. A few punctate foci of DWI hyperintensity in the posterior fossa are without ADC correlate well with associated T2 hyperintensity.. Punctate white matter hyperintensity is noted in the left parietal lobe. The ventricular system is normal in appearance. Left arachnoid cyst is seen. There is no mass effect or midline shift. There is no evidence of acute intraparenchymal hemorrhage. No extra axial fluid collections are seen. The corpus callosum, pituitary gland, and cerebellar tonsils appear grossly unremarkable. Flow voids of the major intracranial arterial vessels are identified. The imaged portions of the paranasal sinuses, mastoid air cells, and orbits are unremarkable. IMPRESSION: There are a few punctate foci of DWI hyperintensity in the posterior fossa bilaterally. These may very questionably reflect punctate infarcts. Left arachnoid cyst is seen. ACT 112: Negative or not required by law. Electronically signed by: Mukund Harden M.D. 10/26/2022 7:06 PM
[2022-10-27] MEDS ORDERED: CLOPIDOGREL BISULFATE 75 MG TAB PO ONE (10:28)
[2022-10-27] MEDS: ATORVASTATIN 40 MG TAB PO SCH (11:26)
[2022-10-27] MEDS: LOSARTAN POTASSIUM 25 MG TAB PO SCH (11:26)
[2022-10-27] MEDS: ASPIRIN 81 MG ECTAB PO SCH (11:26)
[2022-10-27] MEDS: MECLIZINE HCL 25 MG TAB PO PRN ×2 (11:26→21:24)
[2022-10-27] MEDS: MAGNESIUM OXIDE 400 MG TAB PO SCH (11:26)
--- NOTE | 2022-10-27 12:30 | Electrocardiogram Report ---
Test Reason : Blood Pressure : / mmHG Vent. Rate : 114 BPM Atrial Rate : 114 BPM P-R Int : 170 ms QRS Dur : 070 ms QT Int : 290 ms P-R-T Axes : 060 065 100 degrees QTc Int : 399 ms Sinus tachycardia Nonspecific ST abnormality Abnormal ECG When compared with ECG of 26-OCT-2022 09:55, Nonspecific T wave abnormality, worse in Inferior leads Nonspecific T wave abnormality now evident in Anterolateral leads Confirmed by Artemio Miramontes ([id number]) on 10/27/2022 12:29:51 PM Referred By: REFERRED SELF Confirmed By:Lisandro Miramontes
[2022-10-27] MEDS: diazePAM 2 MG TABLET PO PRN (13:50)
--- NOTE | 2022-10-27 14:14 | Hospitalist Progress Note ---
Date of Service October 27, 2022 Assessment & Plan (1) Stroke with cerebral ischemia: Plan: Patient presents with intractable nausea and vomiting, found to have bilateral cerebellar punctate strokes in the setting of left vertebral artery occlusion. Also intractable vertigo with suspected labyrinthine artery involvement. No evidence of dissection on CT angio and MRI We will start Plavix 75 mg daily, aspirin 81 mg daily, Lipitor 40 mg daily Appreciate neurology recommendations. Continue meclizine and Valium as needed for vertigo and also Zofran and promethazine for nausea and vomiting. (2) Vertigo: Plan: As above (3) Dizziness: Plan: As above (4) Chronic venous insufficiency: Plan: Also has a history of DVT in 2012 Completed course of anticoagulant for 6 months Plan Continue monitor in the hospital, Admission and Anticipated Discharge Date Admission Date: October 26, 2022 Subjective patient seen and examined, still having bouts of intractable nausea and vomiting and dizziness Review of Systems Review of Systems: All systems reviewed are negative, apart from the ones contained in the history. Physical Exam Physical Exam: The patient is awake, alert and oriented 3, well developed and well nourished, normocephalic and atraumatic, lying in bed and in no acute distress. HEENT--PERRL, EOMI, mucous membranes and oropharynx mildly dry Neck--supple. No JVD. No bruits. Thyroid normal, trachea midline, no adenopathy. Heart--normal S1 and S2. No murmurs, rubs or gallops. Lungs--clear bilaterally, no respiratory distress, no accessory muscle use. Abdomen--normal bowel sounds and soft. Mild epigastric and left sided abdominal pain Extremities--no cyanosis or clubbing. No edema. Dermatologic--normal skin turgor, normal color, no abnormal lymph nodes, no rash. Neurologic--cranial nerves II through XII grossly intact. Rheumatologic--normal range of motion. Psychiatric--normal affect. Results & Data Results & Data Vital Signs (Past 12 Hours) Vital Signs Temp Pulse Pulse Resp BP Pulse Ox O2 Del Method 10/27/22 11:27 157/90 H 10/27/22 07:00 96 H 10/27/22 08:28 Room Air 10/27/22 08:40 79 18 159/92 H 97 Room Air 10/27/22 08:11 85 18 147/91 H 97 Room Air 10/27/22 07:57 98.6 F 109 H 26 H 166/99 H 99 Room Air 10/27/22 07:43 101 H 18 149/95 H 99 Room Air 10/27/22 02:59 98.2 F 95 H 16 139/87 97 Room Air PG Care Time/CCT Total # of Minutes Spent Total Time Spent with Patient: Total time spent is greater than 50% in coordination of care (as documented) at patient's floor/unit and/or counseling patient: Coding Level of Care Code 43208 SUB INP/OBS CARE 2/35MIN Diagnoses Stroke with cerebral ischemia I63.9 Vertigo R42 Dizziness R42 Chronic venous insufficiency I87.2 Time Spent (min) 35
--- NOTE | 2022-10-27 14:21 | Discharge Summary ---
Date of Service October 27, 2022 Admission HPI Per Admitting Provider Migdalia is a 57-year-old female with a past medical history of chronic venous insufficiency, GERD, hypertension, and Blanca's palsy 1 month prior to ER presentation who presents with dizziness, room spinning and nausea. She has had additional fatigue and malaise for the last week. Had Blanca's palsy 1 month ago with weakness of the forehead, eyelid, and lower face. Symptoms from this resolved completely. Did have a slight facial droop at that time Yesterday she reports she had one episode of dizziness which passed after a few seconds after she sat down. Today she felt fine in th emorning, got up and was doing OK. Was walking around her bed and felt the same type of dizzy spell. [place] like the room was rocking and she tilted onto her bed. [place] like the whole room was moving/spinning. [place] very nauseated during the episode. Did not throw up Has never had these symptoms before. - No vision change, no loss of conciousness, no perioral numbness, no ear tinning, no difficulty speaking. has not had problems walking since. Denies ataxia 'i was in control and could move normally, just room was spinning and felt dizzy.' No syncope/presyncope. No tinnitus No chest pain, chest pressure. No palpitations. Does get allergies, has not been congested recently hx RAÚL edema, was going to see Dr. Ruby for venoseal tomorrow No heart problems in the past. No fhx of heart disease in first degree relatives. Grandparents with some heart disease in old age but she isn't sure. Mother had thyroid problems Pt has hx of high blood pressure well controlled on losartan No fevers, chills Ubly palsy went away completely, was on L side Has had an earache for 1-2 days little pressure in the ear. Uses ibuprofen for pain as needed/toothache. Does not regularly use aspirin. Medical History: Reviewed Medications: Reviewed Surgical History: Reviewed Family history: Reviewed Allergies: Reviewed Social History: No hx tobacco product use. Code Status: Full Code Principal Diagnosis GI bleed Discharge Exam The patient is awake, alert and oriented 3, well developed and well nourished, normocephalic and atraumatic, lying in bed and in no acute distress. HEENT--PERRL, EOMI, mucous membranes and oropharynx mildly dry Neck--supple. No JVD. No bruits. Thyroid normal, trachea midline, no adenopathy. Heart--normal S1 and S2. No murmurs, rubs or gallops. Lungs--clear bilaterally, no respiratory distress, no accessory muscle use. Abdomen--normal bowel sounds and soft. Mild epigastric and left sided abdominal pain Extremities--no cyanosis or clubbing. No edema. Dermatologic--normal skin turgor, normal color, no abnormal lymph nodes, no rash. Neurologic--cranial nerves II through XII grossly intact. Rheumatologic--normal range of motion. Psychiatric--normal affect. Discharge Data Allergies Allergy/AdvReac Type Severity Reaction Status Date / Time cetirizine Allergy Unknown Verified 10/26/22 15:23 diflunisal [From Dolobid] Allergy Unknown Verified 10/26/22 15:23 hydrochlorothiazide Allergy Unknown Verified 10/26/22 15:23 Penicillins Allergy Unknown Verified 10/26/22 15:23 Consultations 10/26/22 14:24 ED Decision to Admit Stat 10/26/22 17:24 Consult Cardiology Routine 10/26/22 23:36 Consult Neurology Routine Ordered Studies 10/26/22 10:41 CT angio head w con Stat CT angio neck with con Stat CT head/brain wo con Stat 10/26/22 17:24 MRI Brain [MR brain wo con] Routine Hospital Course (1) Stroke with cerebral ischemia: Patient presents with intractable nausea and vomiting, found to have bilateral cerebellar punctate strokes in the setting of left vertebral artery occlusion. Also intractable vertigo with suspected labyrinthine artery involvement. No evidence of dissection on CT angio and MRI We will start Plavix 75 mg daily, aspirin 81 mg daily, Lipitor 40 mg daily Appreciate neurology recommendations. Continue meclizine and Valium as needed for vertigo and also Zofran and promethazine for nausea and vomiting. (2) Vertigo: As above (3) Dizziness: As above (4) Chronic venous insufficiency: Also has a history of DVT in 2012 Completed course of anticoagulant for 6 months Plan Continue monitor in the hospital, Discharge Plan Discharge Items Reason For Visit: ILLNESS Follow-up/Referrals: Brenda Rangel M.D. [Primary Care Provider] - Medications and DC Order Prescriptions: No Action albuterol sulfate 90 mcg/actuation HFA aerosol inhaler 2 puff inhalation Q4H PRN (Reason: Wheezing) omeprazole 20 mg tablet,delayed release (DR/EC) 20 mg PO DAILY pseudoephedrine HCl [Sudafed] 30 mg tablet 30 mg PO BID PRN (Reason: nasal congestion) cholecalciferol (vitamin D3) 250 mcg (10,000 unit) capsule 250 mcg PO DAILY hydrochlorothiazide 25 mg tablet 50 mg PO DAILY polyvinyl alcohol-povidone 1.4-0.6 % drops 1 drp ophthalmic (eye) QID PRN (Reason: Other) carboxymethylcellulose sodium 0.5 % dropperette 1 drp ophthalmic (eye) .COMPLEX PRN (Reason: Dry Eye(S)) Rx Instructions: 1 drp into the eye(s) 6 times a day; PRN; vitamin B complex Tablet 1 tab PO DAILY losartan 25 mg Tablet 25 mg PO DAILY Admission Data Admit Date/Time: 10/26/22 15:17 Attending Provider: Linda Haney Admit Provider: Jakob Tate Primary Care Provider: Brenda Rangel Other Providers: Jakob Tate ; Artemio Miramontes ; James Lazaro ; Jose Aguilar ; Sirisha Tariq ; Natasha Dueñas ; Yumiko Villatoro ; Robbie Petty ; Yumiko Healy ; Sancho Medeiros ; Jed Gomez ; Bhavseh Cruz ; Esther Diaz ; Carmel Dalton ; Ced Torres ; Fredis Tyson ; Barry Ny ; Jonas Chen ; [facility] Coding Diagnoses Stroke with cerebral ischemia I63.9 Vertigo R42 Dizziness R42 Chronic venous insufficiency I87.2
--- NOTE | 2022-10-27 14:52 | Cardiology Consultation ---
Date of Consultation October 27, 2022 Assessment & Plan (1) NSVT (nonsustained ventricular tachycardia): (2) Dizziness: Plan 1. Nonsustained ventricular tachycardia: This is likely an incidental finding. She does not report a history of dizziness or palpitations. The episode itself is not associated with dizziness. There appears to be a clear alternative explanation for her presenting symptoms. In the setting of an otherwise normal EKG and normal echocardiogram with preserved LV systolic function, not sure this requires any additional treatment. 2. Dizziness: Not related to arrhythmia. No symptoms at the time of her VT. Severe symptoms today in the absence of any cardiac arrhythmia. History of Present Illness Reason for Consultation: Ventricular tachycardia Requesting Physician: Bebeto Attending Physician: Linda Haney MD History of Present Illness The patient is a 57-year-old woman without a known history of cardiac disease who presented to the emergency room yesterday with symptoms of dizziness. 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 However, the symptoms have resolved entirely. States that for approximately a day leading up to her admission she had significant dizziness and lightheadedness especially with changes in position. This was associated with some additional fatigue and malaise. She also had notable nausea and felt as if she was going to vomit. She presented to the emergency room for evaluation. While in the emergency room she was noted to have occasional ventricular ectopy and 1 episode of wide complex tachycardia lasting several seconds. The patient was unaware of the episode. She did not recall any palpitations or dizziness. He states that leading up to her current illness she generally does not have dizziness or lightheadedness. She has not felt presyncopal at any time. She has never suffered syncope. In fact, she tended to be very active individual who does not appear to be limited by breathing difficulty or exertional symptoms such as chest pain. Allergies Allergy/AdvReac Type Severity Reaction Status Date / Time cetirizine Allergy Unknown Verified 10/26/22 15:23 diflunisal [From Dolobid] Allergy Unknown Verified 10/26/22 15:23 hydrochlorothiazide Allergy Unknown Verified 10/26/22 15:23 Penicillins Allergy Unknown Verified 10/26/22 15:23 Home Medications Medication Instructions Recorded Confirmed Type albuterol sulfate 90 mcg/actuation 2 puff inhalation Q4H PRN Wheezing 07/29/22 10/26/22 History aerosol inhaler cholecalciferol (vitamin D3) 250 250 mcg PO DAILY 07/29/22 10/26/22 History mcg (10,000 unit) capsule omeprazole 20 mg tablet,delayed 20 mg PO DAILY 07/29/22 10/26/22 History release pseudoephedrine HCl 30 mg tablet 30 mg PO BID PRN nasal congestion 07/29/22 10/26/22 History (Sudafed) carboxymethylcellulose sodium 0.5 1 drp ophthalmic (eye) .COMPLEX 08/02/22 10/26/22 History % eye drops in a dropperette PRN Dry Eye(S) hydrochlorothiazide 25 mg tablet 50 mg PO DAILY 08/02/22 10/26/22 History polyvinyl alcohol-povidone 1.4 1 drp ophthalmic (eye) QID PRN 08/02/22 10/26/22 History %-0.6 % eye drops Other losartan 25 mg tablet 25 mg PO DAILY 09/02/22 10/26/22 History vitamin B complex 1 tab PO DAILY 10/26/22 10/26/22 History Patient History Medical History 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 At the time I interviewed the patient had significant nausea and occasional vomiting. Physical Exam Physical Exam: She is alert and oriented x3. Mood affect appear normal. She answered all questions appropriately. Notable distress from vomiting. HEENT: Sclerae are anicteric. Pupils are equal and reactive to light and accommodation. Extraocular movements were intact. Neuro: Cranial nerves intact Lungs: Mildly tachypneic. Lungs are clear to auscultation bilaterally. There are no rales wheezes or rhonchi. She has normal respiratory effort without use of accessory muscles. There is normal pulmonary excursion. Cardiac: The rhythm was regular. S1 and S2 were normal. There are no murmurs on examination. The PMI was not markedly displaced on palpation. Extremities: Patient has bilateral radial pulses that are equal in intensity. There is no evidence cyanosis or clubbing. There was no evidence of significant peripheral edema bilaterally. Skin: There are no rashes noted on examination today. Results & Data Vital Signs (Past 12 Hours) Vital Signs Temp Pulse Pulse Resp BP Pulse Ox O2 Del Method 10/27/22 11:27 157/90 H 10/27/22 07:00 96 H 10/27/22 08:28 Room Air 10/27/22 08:40 79 18 159/92 H 97 Room Air 10/27/22 08:11 85 18 147/91 H 97 Room Air 10/27/22 07:57 37 C 109 H 26 H 166/99 H 99 Room Air 10/27/22 07:43 101 H 18 149/95 H 99 Room Air 10/27/22 02:59 36.8 C 95 H 16 139/87 97 Room Air Laboratory Results Abnormal Lab Results 10/26/22 10/26/22 10/27/22 15:13 15:19 05:49 WBC 7.50 RBC 4.48 Hgb 12.5 Hct 35.9 L MCV 80.1 MCH 27.9 MCHC 34.8 RDW Std Deviation 39.7 RDW Coeff of Adolfo 13.5 Plt Count 333 MPV 9.8 Immature Gran % (Auto) 0.4 Neut % (Auto) 68.4 Lymph % (Auto) 21.1 [place] % (Auto) 10.0 Eos % (Auto) 0.0 Baso % (Auto) 0.1 Neut # (Auto) 5.13 Lymph # (Auto) 1.58 [place] # (Auto) 0.75 H Eos # (Auto) 0.00 Baso # (Auto) 0.01 Immature Gran # (Auto) 0.03 Sodium Potassium Chloride Carbon Dioxide Anion Gap BUN Creatinine Est Cr Clr Drug Dosing Est GFR ( Amer) Est GFR (Non-Af Amer) BUN/Creatinine Ratio Glucose Calcium Magnesium Troponin I High Sens 4.8 SARS-CoV-2, RNA, NAAT NEGATIVE 10/27/22 05:49 WBC RBC Hgb Hct MCV MCH MCHC RDW Std Deviation RDW Coeff of Adolfo Plt Count MPV Immature Gran % (Auto) Neut % (Auto) Lymph % (Auto) [place] % (Auto) Eos % (Auto) Baso % (Auto) Neut # (Auto) Lymph # (Auto) [place] # (Auto) Eos # (Auto) Baso # (Auto) Immature Gran # (Auto) Sodium 136 Potassium 3.7 Chloride 102 Carbon Dioxide 25 Anion Gap 9 BUN 13 Creatinine 0.58 L Est Cr Clr Drug Dosing 139.8 Est GFR ( Amer) 119.4 Est GFR (Non-Af Amer) 103.0 BUN/Creatinine Ratio 22.4 H Glucose 121 H Calcium 9.4 Magnesium 1.8 Troponin I High Sens SARS-CoV-2, RNA, NAAT Diagnostic Findings Brain MRI revealed possible punctate cerebellar infarcts and 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 Chest x-ray obtained the time admission not reveal any acute cardiopulmonary disease. PG Care Time/CCT Total # of Minutes Spent Total Time Spent with Patient: Total time spent is greater than 50% in coordination of care (as documented) at patient's floor/unit and/or counseling patient: Coding Level of Care Code 18140 INT INP/OBS CARE 3/75MIN Diagnoses NSVT (nonsustained ventricular tachycardia) I47.29 Dizziness R42
--- NOTE | 2022-10-27 15:19 | XCELERA ---
[id number]
[2022-10-28] MEDS: diazePAM 2 MG TABLET PO PRN ×2 (05:29→23:06)
[2022-10-28 07:16] LABS: Basophils # (auto) 0.02 K/uL (0-0.2); Basophils % (auto) 0.3 %; Eosinophils # (auto) 0.02 K/uL (0-0.50); Eosinophils % (auto) 0.3 %; Hematocrit (blood only) 36.3 % (37.0-47.0); Hemoglobin 12.3 g/dl (12.0-16.0); Immature Granulocytes # (auto) 0.01 K/uL (0.01-0.20); Immature Granulocytes % (auto) 0.2 %; Lymphocytes # (auto) 1.88 K/uL (1.2-3.4); Lymphocytes % (auto) 30.2 %; Mean Corpuscular Hemoglobin 28.1 pg (25.0-34.0); Mean Corpuscular Hgb Conc 33.9 g/dL (32.0-36.0); Mean Corpuscular Volume 82.9 fL (80.0-100.0); Monocytes # (auto) 0.55 K/uL (0.11-0.59); Monocytes % (auto) 8.8 %; Neutrophils # (auto) 3.75 K/uL (1.40-6.50); Neutrophils % (auto) 60.2 %; Platelet Count 304 K/uL (130-400); RDW Coefficient of Variation 13.7 % (11.5-14.5); RDW Standard Deviation 41.2 fL (36.4-46.3); Red Blood Count 4.38 M/uL (4.20-5.40); White Blood Count 6.23 K/ul (4.8-10.8)
[2022-10-28 07:21] LABS: BUN Creatinine Ratio 21.5 (10-20); Calcium 9.3 mg/dl (8.6-10.3); Creatinine Clr Calc Pharmacy 121.9 ml/min; Est GFR (Non-African American) 99.2 ml/min; Potassium 3.4 mmol/L (3.5-5.1)
[2022-10-28] MEDS: ATORVASTATIN 40 MG TAB PO SCH (09:17)
[2022-10-28] MEDS: ASPIRIN 81 MG ECTAB PO SCH (09:18)
[2022-10-28] MEDS: LOSARTAN POTASSIUM 25 MG TAB PO SCH (09:18)
[2022-10-28] MEDS: MAGNESIUM OXIDE 400 MG TAB PO SCH (09:18)
[2022-10-28] MEDS: MECLIZINE HCL 25 MG TAB PO PRN (09:19)
[2022-10-28] MEDS: CLOPIDOGREL BISULFATE 75 MG TAB PO SCH (09:19)
[2022-10-28] MEDS: PANTOprazole 40 MG TAB PO SCH (12:40)
--- NOTE | 2022-10-28 13:54 | Hospitalist Progress Note ---
Date of Service October 28, 2022 Assessment & Plan (1) Stroke with cerebral ischemia: Plan: Patient presents with intractable nausea and vomiting, found to have bilateral cerebellar punctate strokes in the setting of left vertebral artery occlusion. Also intractable vertigo with suspected labyrinthine artery involvement. No evidence of dissection on CT angio and MRI We will continue Plavix 75 mg daily, aspirin 81 mg daily, Lipitor 40 mg daily Appreciate neurology recommendations. Continue meclizine and Valium as needed for vertigo and also Zofran and promethazine for nausea and vomiting. (2) Vertigo: Plan: As above (3) Chronic venous insufficiency: Plan: Also has a history of DVT in 2012 Completed course of anticoagulant for 6 months (4) NSVT (nonsustained ventricular tachycardia): Plan: Evaluated by cardiology (5) HTN (hypertension): Plan: BP 166/102 On Losartan (6) Dizziness: Plan: As above Plan Continue monitor in the hospital, Admission and Anticipated Discharge Date Admission Date: October 27, 2022 Subjective patient seen and examined, still having bouts of dizziness when she moves around Review of Systems Review of Systems: All systems reviewed are negative, apart from the ones contained in the history. Physical Exam Physical Exam: The patient is awake, alert and oriented 3, well developed and well nourished, normocephalic and atraumatic, lying in bed and in no acute distress. HEENT--PERRL, EOMI, mucous membranes and oropharynx mildly dry Neck--supple. No JVD. No bruits. Thyroid normal, trachea midline, no adenopathy. Heart--normal S1 and S2. No murmurs, rubs or gallops. Lungs--clear bilaterally, no respiratory distress, no accessory muscle use. Abdomen--normal bowel sounds and soft. Mild epigastric and left sided abdominal pain Extremities--no cyanosis or clubbing. No edema. Dermatologic--normal skin turgor, normal color, no abnormal lymph nodes, no rash. Neurologic--cranial nerves II through XII grossly intact. dizziness Rheumatologic--normal range of motion. Psychiatric--normal affect. Results & Data Results & Data Vital Signs (Past 12 Hours) Vital Signs Temp Pulse Resp BP Pulse Ox O2 Del Method 10/28/22 08:00 98.4 F 92 H 20 166/102 H 94 Room Air 06/15/23 07:16 98.8 F 102 H 18 155/97 H 99 Room Air 10/28/22 03:31 98.8 F 83 20 146/94 H 94 Room Air PG Care Time/CCT Total # of Minutes Spent Total Time Spent with Patient: Total time spent is greater than 50% in coordination of care (as documented) at patient's floor/unit and/or counseling patient: Coding Level of Care Code 29777 SUB INP/OBS CARE 2/35MIN Diagnoses Stroke with cerebral ischemia I63.9 Vertigo R42 Chronic venous insufficiency I87.2 NSVT (nonsustained ventricular tachycardia) I47.29 HTN (hypertension) I10 Dizziness R42 Time Spent (min) 35
--- NOTE | 2022-10-28 18:51 | Electrocardiogram Report ---
Test Reason : Blood Pressure : / mmHG Vent. Rate : 093 BPM Atrial Rate : 093 BPM P-R Int : 154 ms QRS Dur : 078 ms QT Int : 348 ms P-R-T Axes : 075 064 079 degrees QTc Int : 432 ms Normal sinus rhythm Nonspecific T wave abnormality Abnormal ECG When compared with ECG of 26-OCT-2022 17:58, Nonspecific T wave abnormality no longer evident in Anterior leads Confirmed by Artemio Miramontes ([id number]) on 10/28/2022 6:51:30 PM Referred By: REFERRED SELF Confirmed By:Lisandro Miramontes
[2022-10-29 06:54] LABS: Basophils # (auto) 0.06 K/uL (0-0.2); Basophils % (auto) 0.9 %; Eosinophils # (auto) 0.13 K/uL (0-0.50); Hematocrit (blood only) 38.5 % (37.0-47.0); Hemoglobin 13.1 g/dl (12.0-16.0); Immature Granulocytes # (auto) 0.02 K/uL (0.01-0.20); Immature Granulocytes % (auto) 0.3 %; Lymphocytes # (auto) 2.06 K/uL (1.2-3.4); Lymphocytes % (auto) 32.3 %; Mean Corpuscular Hemoglobin 27.6 pg (25.0-34.0); Mean Corpuscular Volume 81.2 fL (80.0-100.0); Mean Platelet Volume 9.7 fL (9.4-12.4); Monocytes # (auto) 0.68 K/uL (0.11-0.59); Monocytes % (auto) 10.7 %; Neutrophils # (auto) 3.43 K/uL (1.40-6.50); Neutrophils % (auto) 53.8 %; Platelet Count 299 K/uL (130-400); RDW Coefficient of Variation 13.5 % (11.5-14.5); RDW Standard Deviation 39.9 fL (36.4-46.3); Red Blood Count 4.74 M/uL (4.20-5.40); White Blood Count 6.38 K/ul (4.8-10.8)
[2022-10-29 07:19] LABS: BUN Creatinine Ratio 19.7 (10-20); Calcium 9.3 mg/dl (8.6-10.3); Creatinine Clr Calc Pharmacy 111.7 ml/min; Est GFR (African American) 110.4 ml/min; Est GFR (Non-African American) 95.2 ml/min; Potassium 3.6 mmol/L (3.5-5.1)
[2022-10-29] MEDS: MECLIZINE HCL 25 MG TAB PO PRN (08:39)
[2022-10-29] MEDS: ATORVASTATIN 40 MG TAB PO SCH (08:40)
[2022-10-29] MEDS: LOSARTAN POTASSIUM 25 MG TAB PO SCH (08:40)
[2022-10-29] MEDS: CLOPIDOGREL BISULFATE 75 MG TAB PO SCH (08:40)
[2022-10-29] MEDS: ASPIRIN 81 MG ECTAB PO SCH (08:40)
[2022-10-29] MEDS: PANTOprazole 40 MG TAB PO SCH (08:40)
[2022-10-29] MEDS: MAGNESIUM OXIDE 400 MG TAB PO SCH (08:41)
--- NOTE | 2022-10-29 11:03 | Hospitalist Progress Note ---
Date of Service October 29, 2022 Assessment & Plan (1) Stroke with cerebral ischemia: Plan: Patient presents with intractable nausea and vomiting, found to have bilateral cerebellar punctate strokes in the setting of left vertebral artery occlusion. Also intractable vertigo with suspected labyrinthine artery involvement. Some improvement following symptomatic management No evidence of dissection on CT angio and MRI We will continue Plavix 75 mg daily, aspirin 81 mg daily, Lipitor 40 mg daily Appreciate neurology recommendations. Continue meclizine and Valium as needed for vertigo and also Zofran and promethazine for nausea and vomiting. Await PT eval (2) Vertigo: Plan: As above (3) Chronic venous insufficiency: Plan: Also has a history of DVT in 2012 Completed course of anticoagulant for 6 months (4) NSVT (nonsustained ventricular tachycardia): Plan: Evaluated by cardiology (5) HTN (hypertension): Plan: BP 157/110 On Losartan 25mg daily (6) Dizziness: Plan: As above Plan Continue monitor in the hospital, await PT eval regarding disposition Admission and Anticipated Discharge Date Admission Date: October 27, 2022 Subjective patient seen and examined, participating in PT, dizziness has improved Review of Systems Review of Systems: All systems reviewed are negative, apart from the ones contained in the history. Physical Exam Physical Exam: The patient is awake, alert and oriented 3, well developed and well nourished, normocephalic and atraumatic, lying in bed and in no acute distress. HEENT--PERRL, EOMI, mucous membranes and oropharynx mildly dry Neck--supple. No JVD. No bruits. Thyroid normal, trachea midline, no adenopathy. Heart--normal S1 and S2. No murmurs, rubs or gallops. Lungs--clear bilaterally, no respiratory distress, no accessory muscle use. Abdomen--normal bowel sounds and soft. Mild epigastric and left sided abdominal pain Extremities--no cyanosis or clubbing. No edema. Dermatologic--normal skin turgor, normal color, no abnormal lymph nodes, no rash. Neurologic--cranial nerves II through XII grossly intact. dizziness Rheumatologic--normal range of motion. Psychiatric--normal affect. Results & Data Results & Data Vital Signs (Past 12 Hours) Vital Signs Temp Pulse Pulse Resp BP Pulse Ox O2 Del Method 10/29/22 08:17 98.1 F 100 H 20 157/111 H 99 Room Air 10/29/22 07:00 90 10/29/22 03:59 98.2 F 84 14 133/77 97 Room Air 10/28/22 23:53 97 H 10/28/22 23:08 98.4 F 87 12 138/87 97 Room Air PG Care Time/CCT Total # of Minutes Spent Total Time Spent with Patient: Total time spent is greater than 50% in coordination of care (as documented) at patient's floor/unit and/or counseling patient: Coding Level of Care Code 65760 SUB INP/OBS CARE 2/35MIN Diagnoses Stroke with cerebral ischemia I63.9 Vertigo R42 Chronic venous insufficiency I87.2 NSVT (nonsustained ventricular tachycardia) I47.29 HTN (hypertension) I10 Dizziness R42 Time Spent (min) 35
[2022-10-29] MEDS ORDERED: amLODIPine BESYLATE 5 MG TAB PO ONE (13:30)
[2022-10-30] MEDS: LOSARTAN POTASSIUM 25 MG TAB PO SCH (08:07)
[2022-10-30] MEDS: ASPIRIN 81 MG ECTAB PO SCH (08:07)
[2022-10-30] MEDS: MAGNESIUM OXIDE 400 MG TAB PO SCH (08:07)
[2022-10-30] MEDS: CLOPIDOGREL BISULFATE 75 MG TAB PO SCH (08:07)
[2022-10-30] MEDS: ATORVASTATIN 40 MG TAB PO SCH (08:07)
[2022-10-30] MEDS: PANTOprazole 40 MG TAB PO SCH (08:08)
[2022-10-30] MEDS ORDERED: amLODIPine BESYLATE 5 MG TAB PO SCH (09:00)
--- NOTE | 2022-11-12 09:35 | Discharge Summary ---
Date of Service October 30, 2022 Principal Diagnosis acute stroke Discharge Exam The patient is awake, alert and oriented 3, well developed and well nourished, normocephalic and atraumatic, lying in bed and in no acute distress. HEENT--PERRL, EOMI, mucous membranes and oropharynx mildly dry Neck--supple. No JVD. No bruits. Thyroid normal, trachea midline, no adenopathy. Heart--normal S1 and S2. No murmurs, rubs or gallops. Lungs--clear bilaterally, no respiratory distress, no accessory muscle use. Abdomen--normal bowel sounds and soft. Mild epigastric and left sided abdominal pain Extremities--no cyanosis or clubbing. No edema. Dermatologic--normal skin turgor, normal color, no abnormal lymph nodes, no rash. Neurologic--cranial nerves II through XII grossly intact. dizziness Rheumatologic--normal range of motion. Psychiatric--normal affect. Discharge Data Allergies Allergy/AdvReac Type Severity Reaction Status Date / Time cetirizine Allergy Unknown Verified 10/26/22 15:23 diflunisal [From Dolobid] Allergy Unknown Verified 10/26/22 15:23 hydrochlorothiazide Allergy Unknown Verified 10/26/22 15:23 Penicillins Allergy Unknown Verified 10/26/22 15:23 Consultations 10/26/22 14:24 ED Decision to Admit Stat 10/26/22 17:24 Consult Cardiology Routine 10/26/22 23:36 Consult Neurology Routine Ordered Studies 10/26/22 10:41 CT angio head w con Stat CT angio neck with con Stat CT head/brain wo con Stat 10/26/22 17:24 MRI Brain [MR brain wo con] Routine Hospital Course (1) Stroke with cerebral ischemia: Patient presents with intractable nausea and vomiting, found to have bilateral cerebellar punctate strokes in the setting of left vertebral artery occlusion. Also intractable vertigo with suspected labyrinthine artery involvement. Some improvement following symptomatic management No evidence of dissection on CT angio and MRI We will continue Plavix 75 mg daily, aspirin 81 mg daily, Lipitor 40 mg daily Appreciate neurology recommendations. Continue meclizine and Valium as needed for vertigo and also Zofran and promethazine for nausea and vomiting. Await PT eval (2) Vertigo: As above (3) Chronic venous insufficiency: Also has a history of DVT in 2012 Completed course of anticoagulant for 6 months (4) NSVT (nonsustained ventricular tachycardia): Evaluated by cardiology (5) HTN (hypertension): BP 157/110 On Losartan 25mg daily (6) Dizziness: As above Plan Continue monitor in the hospital, await PT eval regarding disposition Total Time Total Time Spent Total Time Spent (In Minutes): 35 Discharge Plan Discharge Items Patient Disposition: Home - Home Health Services Reason For Visit: ILLNESS Discharge Diagnosis: acute stroke Activity: Resume your previous activity Non-emergency contact: Primary Care Provider and Neurologist Call non-emergency contact if: you have any medication questions Follow-up/Referrals: Brenda Rangel M.D. [Primary Care Provider] - ([facility] will call patient with appointment time. Records were faxed to Dr. Rangel by HIM. Patient has appointment with Esther Mock in Neurology on December 03, 2022 at 1130. ) Diet: Regular Addtl Attending Provider Instructions: please make appointment to follow up with your regular PCP Pending Studies at Discharge: No Stand-Alone Forms: My [facility], Smoking Cessation Medications and DC Order Prescriptions: New atorvastatin 40 mg Tablet 40 mg PO QAM 30 Days Qty: 30 0RF aspirin 81 mg Tablet,Delayed Release (Dr/Ec) 81 mg PO DAILY 30 Days Qty: 30 0RF pantoprazole 40 mg Tablet,Delayed Release (Dr/Ec) 40 mg PO QAM 30 Days Qty: 30 0RF amlodipine [Norvasc] 5 mg Tablet 5 mg PO QAM 30 Days Qty: 30 0RF Continued albuterol sulfate 90 mcg/actuation HFA aerosol inhaler 2 puff inhalation Q4H PRN (Reason: Wheezing) pseudoephedrine HCl [Sudafed] 30 mg tablet 30 mg PO BID PRN (Reason: nasal congestion) cholecalciferol (vitamin D3) 250 mcg (10,000 unit) capsule 250 mcg PO DAILY carboxymethylcellulose sodium 0.5 % dropperette 1 drp ophthalmic (eye) .COMPLEX PRN (Reason: Dry Eye(S)) Rx Instructions: 1 drp into the eye(s) 6 times a day; PRN; vitamin B complex Tablet 1 tab PO DAILY losartan 25 mg Tablet 25 mg PO DAILY Discontinued omeprazole 20 mg tablet,delayed release (DR/EC) 20 mg PO DAILY hydrochlorothiazide 25 mg tablet 50 mg PO DAILY polyvinyl alcohol-povidone 1.4-0.6 % drops 1 drp ophthalmic (eye) QID PRN (Reason: Other) No Action clopidogrel 75 mg tablet 75 mg PO QAM 30 Days Qty: 30 6RF Discharge Orders: Discharge Order (Routine); Ordered 10/30/22 Ordered By: Linda Haney Admission Data Admit Date/Time: 10/27/22 15:38 Attending Provider: Linda Haney Admit Provider: Jakob Tate Primary Care Provider: Brenda Rangel Other Providers: Jakob Tate ; Artemio Miramontes ; James Lazaro ; Jose Aguilar ; Sirisha Tariq ; Natasha Dueñas ; Yumiko Villatoro ; Robbie Petty ; Yumiko Healy ; Sancho Medeiros ; Jed Gomez ; Bhavesh Cruz ; Esther Diaz ; Carmel Dalton ; Ced Torres ; Fredis Tyson ; Barry Ny ; Jonas Chen ; [facility] ; [facility] Fax Other Interventions: Discharge Summary Assessment (RN) Last Done: 10/30/22 11:31 Coding Level of Care Code 01962 INP/OBS DISCH >30 MIN Diagnoses Stroke with cerebral ischemia I63.9 Vertigo R42 Chronic venous insufficiency I87.2 NSVT (nonsustained ventricular tachycardia) I47.29 HTN (hypertension) I10 Dizziness R42 Time Spent (min) 35
--- NOTE | 2022-11-13 13:06 | Coding Query ---
CODING QUERY To promote full compliance with coding requirements relating to patient care, provider participation is requested in all cases of professional nursing assistant uncertainty. Please assist us with the question(s) below: Coding Question(s): Pt admitted with stroke. Neuro, Discharge Summary document Bilateral hemisphere cerebellar punctuate strokes in the setting of left vertebral artery occlusion. Seeking to determine if the Vertebral artery occlusion caused the cerebellar punctuate strokes. Please check below. Thank you ! ZANE Arellano [facility] Physician's Response(s): The Left Vertebral Artery Occlusion caused the acute cerebellar punctuate strokes The Left Vertebral Artery Occlusion did not cause the acute cerebellar punctuate strokes ____x___ Cannot Clinically Correlate if the Left Vertebral Artery Occlusion caused the acute cerebellar punctuate strokes Other: Please Document: Principal Diagnosis: "that condition established after study, to be chiefly responsible for occasioning the admission of the patient to the hospital for care." Co-Existing Principal Diagnosis: "when two or more diagnoses equally meet the criteria for principal diagnosis as determined by the circumstances of admission, diagnostic work up, and/or therapy provided, and the Alphabetic Index, Tabular List, or another coding guideline does not provide sequencing direction, any one of the diagnoses may be sequenced first." "When the physician has documented what appears to be a current diagnosis in the body of the record, but has not included the diagnosis in the final diagnostic statement, the physician should be asked whether the diagnosis should be added." (Source Coding Clinic 2 QTR90. p3-4) ADELED
== END 2022-10-30 14:51 | disposition home health service (06) | DRG 65 ==
LOC: 2E 09:44 → ED 09:44 → SUATTDRO 15:17 → 2E 16:57